=== PATIENT | female | born 1975 ===

== ENCOUNTER 2017-07-17 12:04 | Day surgery (SDC) | payer MEDICAID ==
[~2017-07-17 12:04] MED LIST: LACTATED RINGERS 1,000 ML IV SCH; VERSED IV NR
--- NOTE | 2017-07-17 13:43 | Anesthesia Consultation ---
Anesthesia Consult and Med Hx Date of service: 07/17/17 - Airway Anesthetic Teeth Evaluation: Good ROM Head & Neck: Adequate Mental/Hyoid Distance: Adequate Mallampati Class: Class II Intubation Access Assessment: Good - Pulmonary Exam CTA: Yes - Cardiac Exam Cardiac Exam: RRR - Pre-Operative Health Status ASA Pre-Surgery Classification: ASA2 Proposed Anesthetic Plan: General - Pulmonary Hx Smoking: Yes (former) - Central Nervous System Hx Psychiatric Problems: No - Hematic Hx Anemia: Yes - Other Systems Hx Alcohol Use: Yes (rarely) Hx Cancer: No Hx Obesity: Yes
[2017-07-17] MEDS ORDERED: DILAUDID IV PRN (13:44)
--- NOTE | 2017-07-17 13:44 | Anesthesia Day of Surgery ---
Anesthesia Day of Surgery - Day of Surgery Patient Examined: Yes Patient H&P Reviewed: Yes Patient is NPO: Yes
[2017-07-17] MEDS ORDERED: NACL BACTERIOSTATIC INFILTRATI ONE (13:51)
[2017-07-17] MEDS ORDERED: SUBLIMAZE ONE (13:59)
[2017-07-17] MEDS ORDERED: XYLOCAINE MPF 2% ONE (13:59)
[2017-07-17] MEDS ORDERED: DIPRIVAN 10 MG/ML IV ONE (14:04)
[2017-07-17] MEDS ORDERED: SILVER NITRATE TP ONE (14:25)
[2017-07-17 14:34] LABS: Hematocrit 40.8 % (30.3-42.9); Hemoglobin 13.2 gm/dl (10.1-14.3); Mean Corpuscular HGB Conc 32 % (30-34); Mean Corpuscular Hemoglobin 27 pg (28-32); Mean Corpuscular Volume 84 fl (79-97); Platelet Count 355 K/mm3 (140-440); Red Blood Count 4.84 M/mm3 (3.65-5.03); Red Cell Distribution Width 18.5 % (13.2-15.2)
[2017-07-17] MEDS ORDERED: ZOFRAN ONE (14:56)
[2017-07-17] MEDS ORDERED: TORADOL ONE (14:56)
[2017-07-17] MEDS ORDERED: DECADRON ONE (14:56)
[2017-07-17] MEDS ORDERED: NACL 0.9% IR ONE ×2 (15:07)
[2017-07-17 15:15] LABS: Basophils % (Manual) 0 % (0.0-1.8); Total Cells Counted 100
[2017-07-17 15:16] LABS: Anisocytosis 1+; Ovalocytes Few
--- NOTE | 2017-07-17 15:26 | Operative Report ---
Operative Report Operative Report: Preoperative diagnosis: 1. Abnormal uterine bleeding. 2. Uterine myoma. Postoperative diagnosis: Same as preoperative diagnosis. Procedure: 1. Hysteroscopy 2. Dilatation and curettage. Surgeon: Dr. Hutchinson Court Deputy: none Anesthesia: General IVF: 1 liter of RL Procedure details: The risks, benefits, and alternatives of the procedure were discussed in detail with the patient which included but not limited to the risk of infection, hemorrhage requiring blood transfusion, including uterine perforation. The patient expressed understanding, her questions were answered, and she gave informed consent. The patient was taken to the operating room with an IV fluid infusing Ringer's lactate. In the operating room, she was placed in the dorsal supine position and given general anesthesia. She was then placed on the stirups in a dorsolithotomy position. The perineum, vagina, and cervix were washed and she was prepared and draped in usual sterile fashion. Examination under anesthesia revealed normal external genitalia, vagina, and cervix. The uterus was about 12 weeks' size, retroverted and mobile. The adnexa were nonpalpable. A weighed speculum was placed on the posterior vaginal wall, the anterior lip of the cervix was grasped with a single-tooth tenaculum, endocervical curettage was done. Then the cervical os was dilated. The hysteroscope was introduced into the uterine cavity. It revealed a thickened endometrial lining. The hysteroscope was removed from the uterine cavity and a gentle curettage was performed until a gritty texture was noticed. This specimen which consisted of ECC and EMC was sent to pathology. The counts of laps, needles, sponges, and instruments were correct 2. The patient tolerated the procedure well. She was awakened from the anesthesia and taken to the hospital in a stable condition.
[2017-07-17 16:12] VITALS: BP 118/79
== END 2017-07-17 17:00 | disposition home or self-care (01) ==
LOC: OR 12:04
PROVIDERS: ATTEND Obstetrics & Gynecology
DX: D25.9 Leiomyoma of uterus, unspecified (principal); E66.9 Obesity, unspecified; Z87.891 Personal history of nicotine dependence; Z68.32 Body mass index [BMI] 32.0-32.9, adult
CPT/HCPCS: 36415; 58558; 81025; 85007; 85025; 88305; A4217; J1100; J1885; J2250; J2405; J2704; J3010; J7120